=== PATIENT | male | born 1940 | race Caucasian/White ===

== ENCOUNTER 2018-12-15 06:15 | Observation (INO) | payer MEDICARE, OTHER ==
[2018-12-14 12:34] LABS: BASOPHILS # (AUTO) 0.1 (0.0-0.1); BASOPHILS % 1.2 % (0.0-1.0); EOSINOPHILS # (AUTO) 0.6 (0.0-0.4); HEMATOCRIT 39.8 % (38.2-49.6); HEMOGLOBIN 12.8 g/dL (14.0-18.0); LYMPHOCYTES # (AUTO) 2.8 (1.0-3.2); LYMPHOCYTES % 31.3 % (18.0-39.1); MEAN CORPUSCULAR HEMOGLOBIN 27.9 pg (28-32); MEAN CORPUSCULAR HGB CONC 32.2 g/dL (31-35); MEAN CORPUSCULAR VOLUME 86.9 fL (81-99); MONOCYTES # (AUTO) 0.9 (0.2-0.8); MONOCYTES % 10.4 % (4.4-11.3); NEUTROPHILS # (AUTO) 4.5 (2.1-6.9); NEUTROPHILS % 49.9 % (38.7-80.0); PLATELET COUNT 230 x10e3/uL (140-360); RED BLOOD COUNT 4.58 x10e6/uL (4.3-5.7); RED CELL DISTRIBUTION WIDTH 13.7 % (11.7-14.4)
[2018-12-14 12:53] LABS: INR 0.99
[2018-12-14 12:55] LABS: ANION GAP 14.5 mmol/L (8-16); CALCIUM 9.1 mg/dL (8.4-10.2); CREATININE, SERUM 2.02 mg/dL (0.72-1.25); POTASSIUM 4.5 mmol/L (3.5-5.1)
[~2018-12-15] VITALS: Ht 162.6 cm; Wt 134.3 kg
[2018-12-15] VITALS (20 sets, daily range): BP systolic 117–191; BP diastolic 58–177
[~2018-12-15 06:15] MED LIST: ADVAIR 500/501 EA INH; ASPIRIN81 MG PO; BAYER ASPIRIN PO; CATAPRES0.1 MG PO; CRESTOR10 MG PO; FENOFIBRATE145 MG PO; FENOFIBRATE54 MG PO; FUROSEMIDE40 MG PO; GLIPIZIDE10 MG PO; HYDRALAZINE HCL50 MG PO; HYDROCHLOROTHIA25 MG PO; HYDROCODON-ACE1 EA12 PO; LANTUS100 UNITS/ SQ; LASIX40 MG PO; LEVAQUIN500 MG PO; LOSARTAN POTASS25 MG PO; LOVASTATIN40 MG PO; MEN'S MULTI-VI1 EACH PO; MEVACOR40 MG PO; NORVASC10 MG PO; NOVOLOG MI100 UNIT/1 SC; OMEPRAZOLE20 M1 PO; PROAIR HFA INH8.5 GM INH; SPIRONOLACTONE25 MG PO; STOOL SOFTENER100 MG PO; TERAZOSIN HCL2 MG PO; TESSALON PERLE100 MG PO; ULTRAM 50MG50 MG PO; [UNRECOGNIZED DRUG - OTHER] PO
--- OUTSIDE RECORDS SUMMARY | 2018-12-15 06:17 | XMS REPORT ---
Author Author [facility] Address Unknown Phone Unavailable Care Team Providers Care Functional Analyst Name Role Phone ETHAN VANEGAS Unavailable Unavailable Problems This patient has no known problems. Allergies, Adverse Reactions, Alerts This patient has no known allergies or adverse reactions. Medications This patient has no known medications. Results Test Description Test Time Test Comments Text Results Atomic Results Result Comments CT CHEST WO [place] [address] Patient Name: ETHAN MADRIGAL MR #: [id number] : 1940 Age/Sex: 76/M Req #: [id number] [facility] Physician: ETHAN VANEGAS MD Ordered by: ETHAN VANEGAS MD Report #: [id number] Location: [facility] Room/Bed: [place] [address] Procedure: [id number] CT/CT CHEST WO Exam Date: 09/19/17 Exam Time: 1138 REPORT STATUS: Signed EXAM: CT Chest WITHOUT contrast INDICATION: COMPARISON: Chest radiograph 09/18/2017 TECHNIQUE: Chest was scanned utilizing a multidetector helical scanner from the lung apex through the level of the adrenal glands without administration of IV contrast. Absence of intravenous contrast decreases sensitivity for detection of lymphadenopathy and vascular pathology. Coronal and sagittal reformations were obtained. Routine protocol was performed. IV CONTRAST: None COMPLICATIONS: None RADIATION DOSE: Total DLP: 619.2 mGy*cm Estimated effective dose: (DLP x 0.014 x size factor) mSv CTDIvol has been reviewed. It is below the limits set by the Radiation Protocol Committee (RPC). FINDINGS: LINES/ TUBES: None. LUNGS AND AIRWAYS: No focal consolidations. Right middle lobe 0.6 m subpleural nodule (series 3 image 33). Right lower lobe 0.4 cm nodule along the major fissure (series 3 image 30), likely intrafissural node. PLEURA: The pleural spaces are clear. HEART AND MEDIASTINUM: The thyroid gland is normal. Scattered nonspecific subcentimeter mediastinal lymph nodes. The heart is normal in size.. There is no pericardial effusion. Aortic annular, aortic valvular, and coronary artery calcifications. UPPER ABDOMEN: Unremarkable. BONES: Thin diffuse calcification along the anterior longitudinal ligament which can be seen with ankylosing spondylitis. Hemangioma in the left aspect of the T11 vertebral body. Partially visualized anterior lower cervical fusion hardware. SOFT TISSUES: Unremarkable. IMPRESSION: No acute thoracic abnormalities. Right middle lobe 0.6 cm pulmonary nodule. Recommend follow-up chest CT without contrast in 6-12 months per Fleischner Society 2017 guide lines. Signed by: DR. Tom Koroma MD on 09/19/2017 12:14 PM Dictated By: TOM KOROMA MD 1214 Transcribed By: CASSIDY on 09/19/17 1214 COPY TO: ETHAN VANEGAS MD VQ LUNG SCAN VENT PERFUSION [place] [address] Patient Name: ETHAN MADRIGAL MR #: [id number] : 1940 Age/Sex: 76/M Req #: [id number] Adm Physician: ETHAN VANEGAS MD Ordered by: MARIAM JAUREGUI MD Report #: [id number] Location: [facility] Room/Bed: [place] [address] Procedure: [id number] NM/VQ LUNG SCAN VENT PERFUSION Exam Date: Exam Time: REPORT STATUS: Signed EXAM: VENTILATION PERFUSION LUNG SCAN INDICATION: 76 M with acute onset SOB; COPD exacerbation COMPARISON: CT chest without contrast 09/19/2017 DISCUSSION: Xenon-133 gas 25 mCi was administered via inhalation. Dynamic images of the lungs in the posterior projection were obtained through single breath and washout phases. Distribution of tracer activity is irregular throughout the lungs. Washout is diffusely delayed with severe air trapping in the bilateral lung bases. Perfusion images of the lungs in multiple projections were obtained following intravenous administration of 6 mCi of Tc-99m MAA. Distribution of tracer is mildly irregular throughout the lungs. There are no segmental perfusion defects of any size. The contours of the lungs are well demarcated. The cardiac silho uette is unremarkable. IMPRESSION: 1. Scan findings represent a VERY LOW probability for acute pulmonary embolic disease based on the PIOPED II criteria. 2. Scan findings are compatible with diffuse obstructive lung disease, most marked in the lung bases. Signed by: Dr. Radha Snider M.D. on 09/19/2017 4:14 PM Dictated By: RADHA SNIDER MD 13 Transcribed By: CASSIDY on 09/19/171613 COPY TO: MARIAM JAUREGUI MD CHEST 2 VIEWS [place] [address] Patient Name: ETHAN MADRIGAL MR #: [id number] : 1940 Age/Sex: 76/M Req #: [id number] Adm Physician: Ordered by: EMILY CLEMENT MD Report #: [id number] Location: ER Room/Bed: Procedure: [id number] DX/CHEST 2 VIEWS Exam Date: Exam Time: REPORT STATUS: Signed PROCEDURE: Frontal and lateral views of the chest. COMPARISON: 08/29/14 INDICATIONS: PNEUMONIA, SEPTIC FINDINGS: Limited by body habitus. Lines/tubes: None. Lungs: The lungs are well inflated and clear. Pleura: There is no pleural effusion or pneumothorax. Heart and mediastinum: Borderline enlarged cardiac silhouette on this AP view. Bones: No acute bony abnormality. IMPRESSION: 1. No acute cardiopulmonary disease. Dictated by: Dick Mcneil M.D. on 09/18/2017 at 15:12 Electronically approved by: Dick Mcneil M.D. on 09/18/2017 at 15:12 Dictated By: DICK MCNEIL MD 151 Transcribed By: SANDOR on 09/18/17 151 COPY TO: EMILY CLEMENT MD
--- OUTSIDE RECORDS SUMMARY | 2018-12-15 06:17 | XMS REPORT | Clinical Summary ---
Author Author [facility] Address Unknown Phone Unavailable Care Team Providers Care Print Decorator Name Role Phone Gonzalo Cueva MD PCP Allergies Comments Active Allergy Reactions Severity Noted Date Iodine 08/14/2017 Medications End Date Status Medication Sig Dispensed Refills Start Date Active terazosin (HYTRIN) 5 MG 0 capsule 7 Active losartan (COZAAR) 25 MG TK 1 T PO 1 tablet ONCE D 7 Active glipiZIDE (GLUCOTROL) 10 TK 1 T PO TID 0 MG tablet 7 Active omeprazole (PriLOSEC) 20 TK 1 C PO QAM 0 MG capsule 7 Active hydrALAZINE (APRESOLINE) TK 1 T PO TID 1 100 MG tablet 7 Active LANTUS SOLOSTAR 100 ADM 50 UNITS 0 unit/mL injection (pen) SC BID 7 Active furosemide (LASIX) 40 mg Take 40 mg by 0 tablet mouth 2 (two) times a day. Active fenofibrate (LOFIBRA) 54 Take 54 mg by 0 MG tablet mouth daily. Active aspirin (ECOTRIN) 81 MG Take 81 mg by 0 enteric coated tablet mouth daily. Active Problems Not on file Social History Date Tobacco Use Types Packs/Day Years Used Former Smoker Comments: quit 6 years ago Alcohol Use Drinks/Week oz/Week Comments Yes Sex Assigned at Date Recorded Not on file Industry Job Start Date Occupation Not on file Not on file Not on file Travel End Travel History Travel Start No recent travel history available. Last Filed Vital Signs Not on file Plan of Treatment Health Maintenance Due Date Last Done Comments SHINGLES VACCINES (1 of 1992 2) PNEUMOCOCCAL 2007 POLYSACCHARIDE VACCINE AGE 65 AND OVER PNEUMOCOCCAL-13 2007 INFLUENZA VACCINE 06/30/2018 Results Not on fileafter 12/14/2017 Insurance Payer Benefit Subscriber ID Type Phone Address Plan / Group [employer] TEX[employer]US xxxxxxxxx O [facility] Advance Directives Patient has advance care planning documents on file. For more information, gina e contact: Scott Kendall [address] [place] [address]
[2018-12-15] MEDS ORDERED: FENTANYL CITRATE/PF 100MCG/2 ML INJ ONE (06:53)
[2018-12-15] MEDS ORDERED: MIDAZOLAM HCL 2 MG/2 ML VIAL ONE ×2 (06:53→07:58)
[2018-12-15] MEDS ORDERED: BACITRACIN 50,000 UNIT VIAL ONE (06:53)
[2018-12-15] MEDS ORDERED: LIDOCAINE HCL 2% LOCAL 20 ML VIAL ONE (06:54)
[2018-12-15] MEDS ORDERED: SODIUM CHLORIDE 0.9% 500ML 500 ML ONE (06:54)
[2018-12-15] MEDS ORDERED: SODIUM CHLORIDE 0.9% 1000ML 2,000 ML ONE (06:55)
[2018-12-15] MEDS ORDERED: VANCOMYCIN 1GM/NS 250 ML 250 ML ONE (07:12)
[2018-12-15] MEDS ORDERED: LEVEMIR100 UNIT/1 SQ (07:23)
--- NOTE | 2018-12-15 10:00 | NUR ---
1000A Received pt report Stephen Sifuentes ,Identifierx2. Dual Pacer implanted [employer](DDDR-60) for SSS/Bradycardia,per Dr Hair.75 Fentanyl-25 ,4 Versed ,1gm Vancomycin. Lt shoulder sling in place.Pulse left Radial pulse adequate with finger tips blanching well . Iv to hand w/o s/s infiltration at KVO 850cc NS No dye due to Iodine allergies. CXR completed. Diet raty ordered . Family at bedside and discussed POC. and potential DC time 230pm after pacer integration at 12n. Abdomen soft and non tender denies necessity to defecate or urinate. at bedside Bilateral femoral pulses present 1+ pedal edema bilateral. Denies co CP or SOB or dizziness.
--- NOTE | 2018-12-15 10:21 | Diagnostic Imaging Report ---
EXAMINATION: CHEST SINGLE (PORTABLE) INDICATION: Chest pain. Pacemaker placement. COMPARISON: None FINDINGS: TUBES and LINES: Left chest dual-lead cardiac device is seen. LUNGS: Lungs are well inflated. Lungs are clear. There is no evidence of pneumonia or pulmonary edema. PLEURA: No pleural effusion or pneumothorax. HEART AND MEDIASTINUM: The cardiomediastinal silhouette is unremarkable. BONES AND SOFT TISSUES: No acute osseous lesion. Soft tissues are unremarkable. UPPER ABDOMEN: No free air under the diaphragm. IMPRESSION: No acute thoracic abnormality. Left chest dual-lead cardiac device is seen. Signed by: Dr. Zach Youngblood M.D. on 12/15/2018 10:18 AM
--- NOTE | 2018-12-15 11:15 | NUR ---
Medicated narco 5 for co pain 03/09. HOB elevated feed finger foods by ordered tel obsv bed by teletracker No CO Cp Or SOB
[2018-12-15] MEDS ORDERED: HYDROCODONE/APAP 5MG-325MG TAB ONE (12:11)
[2018-12-15] MEDS ORDERED: HYDROCODONE/APAP 5MG-325MG TAB PO ONE (12:15)
--- NOTE | 2018-12-15 12:31 | NUR ---
1231 awaiting be disposition. Tele observation. Pt appears more comfortable after po Narco and eating finger foods with assistance No bleeding at site awaiting pace maker interrogation team
--- NOTE | 2018-12-15 13:29 | NUR ---
1330 [place] supv Tia RN,called back obtaining tele obsv bed em[place]. Notification x2.
--- NOTE | 2018-12-15 13:30 | Operative Report ---
DATE OF PROCEDURE: December 15, 2018 PREPROCEDURE DIAGNOSIS: Sick sinus syndrome, tachybrady syndrome with symptomatic bradycardia, nonreversible causes. POSTPROCEDURE DIAGNOSIS: Sick sinus syndrome, tachybrady syndrome with symptomatic bradycardia, nonreversible causes. ESTIMATED BLOOD LOSS: 5 mL. COMPLICATIONS: None. PROCEDURES PERFORMED 1. Dual-chamber pacemaker placement. 2. Moderate sedation. ANESTHESIA: Moderate conscious sedation was provided under my direct supervision by a sedation-trained nurse. Sedation approximate time 30 minutes with Versed and fentanyl. There were no complications. See sedation form for details. DESCRIPTION OF PROCEDURE: After informed consent was obtained, the patient was brought to the electrophysiology laboratory in a fasting, nonsedated state. The area over his chest was prepped and draped in the usual sterile fashion. Moderate sedation and prophylactic antibiotic were given. One percent lidocaine was used as a local anesthetic. A 3-cm skin incision was made in the left subclavicular area. Electrocautery and sharp and blunt dissection were used to reach the muscular fascia, and a pocket was created for eventual implantation of the device. Vascular access was obtained x2 in the left axillary vein using the modified Seldinger technique under fluoroscopic guidance. Two 6-Malagasy sheaths were placed. The ventricular lead was advanced to the RV apex. R-wave 16, pacing 0.5 at 0.5, impedance 800. Atrial lead to the right atrial appendage. P-wave 4, pacing 0.7 at 0.5, impedance 600. The sheaths were removed from the body. The leads were secured to the fascia using Ethibond. The pocket was irrigated with antibiotic solution using the pulse final installer inspector. Hemostasis was meticulous. Leads were connected to the device. The entire pacemaker system was placed in the pocket. The incision was closed using Vicryl and Dermabond. The patient tolerated the procedure well. The procedure was deemed complete. SUMMARY OF HARDWARE IMPLANTED 1. The new pacemaker is [employer] model number L311, [id number]. 2. The atrial lead is [employer] 7740, [id number]. 3. The ventricular lead is [employer] 7731, [id number]. IMPRESSION: Successful dual-chamber pacemaker placement via left axillary vein. PLAN 1. Routine postop monitoring on telemetry bed. 2. Chest x-ray. 3. Follow up in 2 weeks. Job#: [id number] MH
--- OUTSIDE RECORDS SUMMARY | 2018-12-15 13:51 | XMS REPORT | Clinical Summary ---
Author Author [facility] Address Unknown Phone Unavailable Care Team Providers Care Family Support Specialist Name Role Phone Gonzalo Cueva MD PCP [...] Plan / Group TEX[employer] TEX[employer]PL[employer] xxxxxxxxx O [facility] Advance Directives Patient has advance care planning documents on file. For more information, gina e contact: Scott Kendall [address] [place] [address]
--- NOTE | 2018-12-15 14:15 | NUR ---
RECEIVED PATIENT FROM FARM MANAGER. LEFT CHEST WALL DRESSING INTACT. VITAL SIGNS ARE STABLE. POC DISCUSSED WITH PATIENT AND SPOUSE. BOTH VERBALIZED UNDERSTANDING. TELE VERIFIED WITH SR VICE PRESIDENT BED IN LOWEST POSITION, LOCKED AND CALL SHAIKH WITHIN REACH.
--- NOTE | 2018-12-15 14:15 | NUR ---
Transfer to floor care RM 177 tele obsv Report face to face. s/p new Pacemaker insert DR Daniel Let sc dressing dry and intact. Paced rhythm. Plan to dc in am. DC plan discussed with with teaching aids and home script given to family. Transported via stretcher on tel box. escorted by COMMUNICATIONS COORDINATOR and RN and in attendance. SIMON Kyle RN nurse received report and check site. Pt received [place] x1 with adequate relief. Still needs pacer evaluation but CXR done. Left pt with side rails up and call light at bedside.
--- NOTE | 2018-12-15 15:19 | NUR ---
Dr. Daniel paged to clarify if home medications can be restarted.
[2018-12-15] MEDS ORDERED: NON-FORMULARY MEDICATION (Insuln Asp Prt/Insulin Aspart (Novolog Mix 70-30 Flexpen Syrn) 1 SC SCH (16:30)
[2018-12-15] MEDS ORDERED: ALBUTEROL SULFATE HFA 8GM INHALATION AEROSOL INH PRN (16:30)
[2018-12-15] MEDS ORDERED: HYDRALAZINE HCL 100 MG PO SCH (17:00)
[2018-12-15] MEDS ORDERED: INSULIN DETEMIR 100 UNIT/ML PEN SQ SCH (17:00)
[2018-12-15] MEDS ORDERED: NON-FORMULARY MEDICATION (Insulin Detemir (Levemir) 50 UNITS) SQ SCH (17:00)
[2018-12-15] MEDS ORDERED: NON-FORMULARY MEDICATION (Glipizide 10 MG) PO SCH (17:00)
[2018-12-15] MEDS: INSULIN ASPART 70/30 100 UNITS/ML VIAL SC SCH (17:09)
[2018-12-15] MEDS: GLIPIZIDE 5 MG TAB PO SCH (17:09)
[2018-12-15] MEDS: HYDRALAZINE HCL 100 MG TABLET PO SCH (17:09)
[2018-12-15] MEDS: FUROSEMIDE 40 MG TAB PO SCH (17:09)
--- NOTE | 2018-12-15 18:05 | NUR ---
Patient assisted up to the bathroom and back to bed. Call [place] within reach.
--- NOTE | 2018-12-15 19:15 | NUR ---
Report given to oncoming shift.
[2018-12-15] MEDS ORDERED: MORPHINE SULFATE 2 MG/ML SYR 1ML IV PRN (20:30)
[2018-12-15] MEDS: INSULIN DETEMIR 100 UNIT/ML PEN SQ SCH (21:00)
[2018-12-15] MEDS: MORPHINE SULFATE INJ 4 MG/ML INJ 1ML IV PRN (21:00)
[2018-12-15] MEDS: TERAZOSIN HCL 5 MG CAP PO SCH (21:00)
[2018-12-15] MEDS: SIMVASTATIN 40 MG TAB PO SCH (21:00)
[2018-12-15] MEDS ORDERED: TERAZOSIN HCL 5 MG PO SCH (21:00)
[2018-12-15] MEDS ORDERED: SIMVASTATIN 20 MG TAB PO SCH (21:00)
[2018-12-16] VITALS (8 sets, daily range): BP systolic 127–184; BP diastolic 58–80
--- NOTE | 2018-12-16 01:40 | NUR ---
0140-pt c/o chest pain in sternal area. intermittant pain. 04/08. manual bp done. 184/76, hr 72. will give morphine and order stat ecg 0155--morphive iv given. pain 04/08. 0158--stat ecg done. 0204--call placed to dr rojo. pt states pain now 01/09. no other symptoms. bp 178/74. will await call back.
[2018-12-16] MEDS: MORPHINE SULFATE INJ 4 MG/ML INJ 1ML IV PRN (01:55)
--- NOTE | 2018-12-16 02:04 | NUR ---
call placed to dr rojo answering service. spoke to ellis. will await call back.
--- NOTE | 2018-12-16 02:50 | NUR ---
spoke with dr rojo. informed him of ecg results, bp 184/76, then 178/74 after morphine was given informed him that pain went from 5/10 to 2/10. also informed him that pt was having chills earlier in shift that was resolved with blankets. also informed him that pt's pain was in near strenal bone area. no other symptoms. received orders for hydralizine x1 dose and to give a prn norco tablet now.
[2018-12-16] MEDS ORDERED: HYDRALAZINE HCL 20 MG/ML VIAL IV STA (02:53)
[2018-12-16] MEDS: HYDROCODONE/APAP 5MG-325MG TAB PO PRN ×4 (03:03→21:14)
--- NOTE | 2018-12-16 04:00 | NUR ---
vitals improved. pt denies any chest pain. no distres.s
--- NOTE | 2018-12-16 07:00 | NUR ---
Walking rounds done and report received. Device specialist at bedside interrogating pacemaker. POC discussed. at the bedside. Both instructed to call for assistance as needed and verbalized understanding. Call [place] within reach. Tele verified with telephone coin box collector.
[2018-12-16] MEDS: INSULIN ASPART 70/30 100 UNITS/ML VIAL SC SCH ×3 (07:30→16:30)
[2018-12-16] MEDS: FUROSEMIDE 40 MG TAB PO SCH ×2 (08:27→17:00)
[2018-12-16] MEDS: HYDROCHLOROTHIAZIDE 25 MG TAB PO SCH (08:28)
[2018-12-16] MEDS: GLIPIZIDE 5 MG TAB PO SCH ×2 (08:30→17:11)
[2018-12-16] MEDS: PANTOPRAZOLE SOD 40 MG TABEC PO SCH (08:30)
[2018-12-16] MEDS: LOSARTAN POTASSIUM 25 MG TAB PO SCH (08:50)
[2018-12-16] MEDS: ASPIRIN 81 MG CHEW TAB PO SCH (08:50)
[2018-12-16] MEDS: DOCUSATE SODIUM 100 MG CAP PO SCH (08:50)
[2018-12-16] MEDS: FOLIC ACID/CYANOCOB/PYRIDOXINE TAB PO SCH (08:51)
[2018-12-16] MEDS: HYDRALAZINE HCL 100 MG TABLET PO SCH ×2 (08:51→17:11)
[2018-12-16] MEDS: AMLODIPINE BESYLATE 10 MG TAB PO SCH (08:51)
[2018-12-16] MEDS: FENOFIBRATE 145 MG TAB PO SCH (08:51)
[2018-12-16] MEDS ORDERED: [UNRECOGNIZED DRUG - OTHER] PO SCH (09:00)
[2018-12-16] MEDS: INSULIN DETEMIR 100 UNIT/ML PEN SQ SCH ×2 (09:11→21:00)
--- NOTE | 2018-12-16 09:52 | NUR ---
at the bedside making rounds. Per MD patient will need to stay one more night. Patient and spouse verbalized understanding.
[2018-12-16] MEDS ORDERED: COLCHICINE 0.6 MG TAB PO STA (09:53)
--- NOTE | 2018-12-16 10:33 | NUR ---
SOCIAL WORK INITIAL ASSESSMENT Acute Specialist to bedside to discuss plan of care with patient/family. CM/SW role and care transitions discussed. Anticipated discharge plan discussed along with duration of care. CM/SW discussed patients right to make decisions in care. CM/SW work hours given. Patient lives: IN OWN HOUSE WITH FAMILY Admit/Transfer: VIA ED FROM HOME POA/Emergency contact: PORFIRIO [phone] Current/Previous Home Health: NONE PCP/Follow-up Care: LÁZARO Current/Previous DME: NONE Other Services: NONE Employment Status: DISABLED Areas of Concerns: BLIND Referral Needs: NONE Education Needs: NONE IMM/ELKINS given and signed (if applicable): ELKINS Goal for discharge: RETURN HOME INDEPENDENTLY CM/SW left business card at the bedside with contact information. Name and number was also written on the patients whiteboard. Patient verbalized understanding of discussion. CM will follow-up with ongoing discharge and transition of care needs.
[2018-12-16] MEDS: COLCHICINE 0.6 MG TAB PO SCH ×2 (14:59→21:13)
--- NOTE | 2018-12-16 19:01 | NUR ---
Report given to oncoming shift.
--- NOTE | 2018-12-16 19:05 | NUR ---
REPORT RECEIVED FROM OFF GOING NURSE, PT AND IN RESTROOM, DENIES NEEDS, REFUSING ASSISTANCE, INSTRUCTED TO CALL FOR ASSISTANCE
[2018-12-16] MEDS: TERAZOSIN HCL 5 MG CAP PO SCH (21:00)
[2018-12-16] MEDS: SIMVASTATIN 40 MG TAB PO SCH (21:00)
[2018-12-17] VITALS: BP 135/59
[2018-12-17] MEDS: HYDROCODONE/APAP 5MG-325MG TAB PO PRN ×2 (03:23→08:55)
[2018-12-17 04:20] VITALS: BP 139/79
[2018-12-17] MEDS: COLCHICINE 0.6 MG TAB PO SCH ×2 (06:00→12:25)
--- NOTE | 2018-12-17 07:14 | NUR ---
pt resting in bed, no c/o pain or s/s distress. family at bedside.
[2018-12-17] MEDS: INSULIN ASPART 70/30 100 UNITS/ML VIAL SC SCH ×2 (07:30→11:30)
[2018-12-17 08:01] VITALS: BP 161/67
[2018-12-17] MEDS: GLIPIZIDE 5 MG TAB PO SCH (08:14)
[2018-12-17] MEDS: LOSARTAN POTASSIUM 25 MG TAB PO SCH (08:14)
[2018-12-17] MEDS: DOCUSATE SODIUM 100 MG CAP PO SCH (08:14)
[2018-12-17] MEDS: AMLODIPINE BESYLATE 10 MG TAB PO SCH (08:14)
[2018-12-17] MEDS: FENOFIBRATE 145 MG TAB PO SCH (08:14)
[2018-12-17] MEDS: ASPIRIN 81 MG CHEW TAB PO SCH (08:14)
[2018-12-17] MEDS: FOLIC ACID/CYANOCOB/PYRIDOXINE TAB PO SCH (08:14)
[2018-12-17] MEDS: HYDROCHLOROTHIAZIDE 25 MG TAB PO SCH (08:14)
[2018-12-17] MEDS: PANTOPRAZOLE SOD 40 MG TABEC PO SCH (08:14)
[2018-12-17] MEDS: HYDRALAZINE HCL 100 MG TABLET PO SCH (08:36)
[2018-12-17] MEDS: FUROSEMIDE 40 MG TAB PO SCH (08:36)
[2018-12-17] MEDS: INSULIN DETEMIR 100 UNIT/ML PEN SQ SCH (08:38)
--- NOTE | 2018-12-17 08:39 | NUR ---
pt states he doesnt want the 70/30 insulin orquidea due to current bs96. also refusing lasix and hcl, states he will resume when goes home.
[2018-12-17 09:52] VITALS: BP 161/67
--- NOTE | 2018-12-17 11:17 | NUR ---
pt wanting to dc, ed will call MD to check on dc order and rx for gout rx at pt request. spoke to md nurse, pending callback
[2018-12-17 12:03] VITALS: BP 162/62
--- NOTE | 2018-12-17 12:48 | NUR ---
reviewed dc instructions with pt and , verbalized understanding. early last dose of gout med per MD instructions prior to dc. aware of vs. pt stable. did not want insulin prior to dc.
== END 2018-12-17 12:40 | disposition home or self-care (01) ==
LOC: CATH LAB 06:15 → CATH LAB V 11:57 → IMCU 14:04
PROVIDERS: ADMIT Internal Medicine; ATTEND Internal Medicine
DX: I49.5 Sick sinus syndrome (principal); Z01.812 Encounter for preprocedural laboratory examination; I10 Essential (primary) hypertension; E11.9 Type 2 diabetes mellitus without complications; Z86.73 Personal history of transient ischemic attack (TIA), and cerebral infarction without residual deficits; I25.119 Atherosclerotic heart disease of native coronary artery with unspecified angina pectoris; Z79.84 Long term (current) use of oral hypoglycemic drugs; G47.33 Obstructive sleep apnea (adult) (pediatric); E66.01 Morbid (severe) obesity due to excess calories; Z68.43 Body mass index [BMI] 50.0-59.9, adult; I45.10 Unspecified right bundle-branch block; Z91.041 Radiographic dye allergy status; Z82.49 Family history of ischemic heart disease and other diseases of the circulatory system
CPT/HCPCS: 33208; 36415 ×4; 71045; 80048; 82948 ×3; 85025; 85610; 93005; C1785; C1898; G0378 ×3; J0360; J1815; J2001; J2250; J2270 ×2; J3370; J7030; J7040; S0164 ×2

== ENCOUNTER → 2020-08-16 | Outpatient (CLI) | payer MEDICARE ==
[~2020-08-16] MED LIST changes: +LEVEMIR100 UNIT/1 SQ
--- NOTE | 2020-08-16 16:03 | Diagnostic Imaging Report ---
EXAM: Renal Ultrasound INDICATION: ^CHRONIC KIDNEY DISEASE STAGE III COMPARISON: None TECHNIQUE: Transverse and longitudinal images of the kidneys and bladder were obtained. FINDINGS: Right Kidney: Length: 10.4 cm Appearance: Normal echogenicity. Collecting system: No hydronephrosis Stones: None Cyst/Mass: Mid pole anechoic simple cysts measure up to 2.1 cm. Left Kidney: Length: 12.2 cm Appearance: Normal echogenicity. Collecting system: No hydronephrosis Stones: None Cyst/Mass: None Bladder: No mass or calculi. Ureteral jets not visualized. Prevoid volume estimate of 83 cc. Postvoid images demonstrate complete emptying. The prostate measures 2.3 x 2.4 x 2.4 cm with normal volume estimate of 6.7 cc. IMPRESSION: No hydronephrosis or renal calculi. Simple right renal cysts. Pre and post void volume estimates as above with complete postvoid emptying. Signed by: Alfredo Santana MD on 08/16/2020 3:59 PM
== END ==
LOC: US 14:24
PROVIDERS: ATTEND Internal Medicine Nephrology
DX: N18.3 Chronic kidney disease, stage 3 (moderate) (principal)
CPT/HCPCS: 76770; 76857

== ENCOUNTER → 2020-11-13 | Day surgery (SDC) | payer MEDICARE ==
[2020-11-08 10:21] LABS: BASOPHILS # (AUTO) 0.1 (0.0-0.1); BASOPHILS % 1.6 % (0.0-1.0); EOSINOPHILS # (AUTO) 1.1 (0.0-0.4); EOSINOPHILS % 12.8 % (0.0-6.0); HEMATOCRIT 38.1 % (38.2-49.6); HEMOGLOBIN 12.3 g/dL (14.0-18.0); LYMPHOCYTES # (AUTO) 2.4 (1.0-3.2); LYMPHOCYTES % 26.7 % (18.0-39.1); MEAN CORPUSCULAR HGB CONC 32.3 g/dL (31-35); MEAN CORPUSCULAR VOLUME 86.8 fL (81-99); MONOCYTES # (AUTO) 0.8 (0.2-0.8); MONOCYTES % 8.8 % (4.4-11.3); NEUTROPHILS # (AUTO) 4.4 (2.1-6.9); NEUTROPHILS % 49.9 % (38.7-80.0); PLATELET COUNT 241 x10e3/uL (140-360); RED BLOOD COUNT 4.39 x10e6/uL (4.3-5.7)
[2020-11-08 10:57] LABS: ALBUMIN 3.5 g/dL (3.5-5.0); ALBUMIN/GLOBULIN RATIO 1.1 (0.8-2.0); ANION GAP 13.3 mmol/L (8-16); CREATININE, SERUM 1.81 mg/dL (0.72-1.25); POTASSIUM 4.3 mmol/L (3.5-5.1)
[2020-11-13] VITALS (11 sets, daily range): BP systolic 128–156; BP diastolic 60–92
[~2020-11-13] VITALS: Ht 165.1 cm; Wt 133.4 kg
[~2020-11-13] MED LIST changes: +ALPRAZOLAM 0.5 MG TAB ONE; +AMLODIPINE BESYL5 MG PO; +ATORVASTATIN CA20 MG PO; +DIPHENHYDRAMINE HCL 25 MG CAP ONE; +FAMOTIDINE 20 MG/2 ML VIAL IV ONE; +FENTANYL CITRATE/PF 100MCG/2 ML INJ ONE; +HEPARIN SOD/SOD CHLORIDE 2,000 ML ONE; +IOPAMIDOL 370 MG/ML 200 ML INFUS..BTL INJ ONE; +IRBESARTAN150 MG PO; +LIDOCAINE HCL 2% LOCAL 20 ML VIAL ONE; +METHYLPREDNISOLONE SOD SUCC 125 MG/2ML VIAL ONE; +METOPROLOL SUCC50 MG PO; +MIDAZOLAM HCL 2 MG/2 ML VIAL ONE; +NOVOLOG100 UNIT/1 SC; +RENA-VITE TABL0.8 MG PO; +SODIUM CHLORIDE 0.9% 1000ML 1,000 ML ONE; +TERAZOSIN HCL5 MG PO; +VERAPAMIL HCL 2.5 MG/ML 2 ML VIAL ONE
== END | disposition home or self-care (01) ==
LOC: CATH LAB 11:07
PROVIDERS: ATTEND Internal Medicine Interventional Cardiology
DX: I25.118 Atherosclerotic heart disease of native coronary artery with other forms of angina pectoris (principal); J44.9 Chronic obstructive pulmonary disease, unspecified; E11.9 Type 2 diabetes mellitus without complications; Z95.0 Presence of cardiac pacemaker; Z83.3 Family history of diabetes mellitus; Z82.49 Family history of ischemic heart disease and other diseases of the circulatory system; Z84.1 Family history of disorders of kidney and ureter; Z80.9 Family history of malignant neoplasm, unspecified; I10 Essential (primary) hypertension; I49.3 Ventricular premature depolarization; R53.81 Other malaise; Z20.828 Contact with and (suspected) exposure to other viral communicable diseases
CPT/HCPCS: 36415; 76937 ×2; 80053; 85025; 93454; C1769; C1887; J2001; J2250; J2930; J3010; J7030; Q9967; U0002; 99152

== ENCOUNTER → 2020-11-29 | Outpatient (CLI) | payer MEDICARE ==
[~2020-11-29] MED LIST changes: -ALPRAZOLAM 0.5 MG TAB ONE; -DIPHENHYDRAMINE HCL 25 MG CAP ONE; -FAMOTIDINE 20 MG/2 ML VIAL IV ONE; -FENTANYL CITRATE/PF 100MCG/2 ML INJ ONE; -HEPARIN SOD/SOD CHLORIDE 2,000 ML ONE; -IOPAMIDOL 370 MG/ML 200 ML INFUS..BTL INJ ONE; -LIDOCAINE HCL 2% LOCAL 20 ML VIAL ONE; -METHYLPREDNISOLONE SOD SUCC 125 MG/2ML VIAL ONE; -MIDAZOLAM HCL 2 MG/2 ML VIAL ONE; -SODIUM CHLORIDE 0.9% 1000ML 1,000 ML ONE; -VERAPAMIL HCL 2.5 MG/ML 2 ML VIAL ONE
== END ==
LOC: US 08:24
PROVIDERS: ATTEND Internal Medicine Nephrology
DX: N18.30 Chronic kidney disease, stage 3 unspecified (principal)
CPT/HCPCS: 76770; 76857

== ENCOUNTER → 2021-05-28 | Outpatient (CLI) | payer MEDICARE | LOC: CT 13:27 | PROVIDERS: ATTEND Internal Medicine Gastroenterology | DX: Z12.11 Encounter for screening for malignant neoplasm of colon (principal); K30 Functional dyspepsia; R14.0 Abdominal distension (gaseous); K46.9 Unspecified abdominal hernia without obstruction or gangrene; E11.9 Type 2 diabetes mellitus without complications; I10 Essential (primary) hypertension; Z71.3 Dietary counseling and surveillance; E66.01 Morbid (severe) obesity due to excess calories; Z87.891 Personal history of nicotine dependence | CPT/HCPCS: 74176 ==

== ENCOUNTER → 2021-07-23 | Day surgery (SDC) | payer MEDICARE ==
[2021-07-22 07:54] LABS: BASOPHILS # (AUTO) 0.2 (0.0-0.1); BASOPHILS % 1.8 % (0.0-1.0); EOSINOPHILS % 10.9 % (0.0-6.0); HEMATOCRIT 39.4 % (38.2-49.6); HEMOGLOBIN 12.2 g/dL (14.0-18.0); LYMPHOCYTES # (AUTO) 3.1 (1.0-3.2); LYMPHOCYTES % 32.6 % (18.0-39.1); MEAN CORPUSCULAR HEMOGLOBIN 27.8 pg (28-32); MEAN CORPUSCULAR VOLUME 89.7 fL (81-99); MONOCYTES # (AUTO) 0.8 (0.2-0.8); MONOCYTES % 8.1 % (4.4-11.3); NEUTROPHILS # (AUTO) 4.4 (2.1-6.9); NEUTROPHILS % 46.2 % (38.7-80.0); PLATELET COUNT 264 x10e3/uL (140-360); RED BLOOD COUNT 4.39 x10e6/uL (4.3-5.7); RED CELL DISTRIBUTION WIDTH 14.1 % (11.7-14.4)
[2021-07-22 08:35] LABS: INR 0.96; PARTIAL THROMBOPLASTIN TIME 33.9 seconds (23.8-35.5)
[2021-07-22 08:43] LABS: ANION GAP 15.5 mmol/L (8-16); CALCIUM 9.5 mg/dL (8.4-10.2); CREATININE, SERUM 1.81 mg/dL (0.72-1.25); POTASSIUM 4.5 mmol/L (3.5-5.1)
[~2021-07-23] MED LIST changes: +STOOL SOFTENER1 EAC2 PEG; +ULTRAM50 MG PO
[2021-07-23 08:05] VITALS: BP 145/61
== END | disposition home or self-care (01) ==
LOC: OR 05:34
PROVIDERS: ATTEND Internal Medicine Gastroenterology
DX: Z12.11 Encounter for screening for malignant neoplasm of colon (principal); D12.0 Benign neoplasm of cecum; K31.7 Polyp of stomach and duodenum; K29.70 Gastritis, unspecified, without bleeding; K44.9 Diaphragmatic hernia without obstruction or gangrene; K21.9 Gastro-esophageal reflux disease without esophagitis; Z71.3 Dietary counseling and surveillance; K46.9 Unspecified abdominal hernia without obstruction or gangrene; E11.22 Type 2 diabetes mellitus with diabetic chronic kidney disease; I12.9 Hypertensive chronic kidney disease with stage 1 through stage 4 chronic kidney disease, or unspecified chronic kidney disease; N18.9 Chronic kidney disease, unspecified; I25.10 Atherosclerotic heart disease of native coronary artery without angina pectoris; J45.909 Unspecified asthma, uncomplicated; E66.01 Morbid (severe) obesity due to excess calories; Z91.041 Radiographic dye allergy status; Z01.810 Encounter for preprocedural cardiovascular examination; Z01.812 Encounter for preprocedural laboratory examination; Z20.822 Contact with and (suspected) exposure to COVID-19; Z79.82 Long term (current) use of aspirin; Z79.4 Long term (current) use of insulin; Z68.42 Body mass index [BMI] 45.0-49.9, adult; Z87.891 Personal history of nicotine dependence; Z86.73 Personal history of transient ischemic attack (TIA), and cerebral infarction without residual deficits; Z95.0 Presence of cardiac pacemaker
CPT/HCPCS: 36415 ×2; 43239; 45380; 80048; 82948; 85025; 85610; 85730; 88305; 88312; 93005; U0002; 45378

== ENCOUNTER 2021-11-05 23:03 | Inpatient (IN) | payer MEDICARE ==
[~2021-11-05] VITALS: Ht 165.1 cm; Wt 133.4 kg
[2021-11-05 23:34] LABS: BASOPHILS # (AUTO) 0.2 (0.0-0.1); BASOPHILS % 1.5 % (0.0-1.0); EOSINOPHILS # (AUTO) 0.7 (0.0-0.4); EOSINOPHILS % 7.4 % (0.0-6.0); HEMATOCRIT 39.3 % (38.2-49.6); HEMOGLOBIN 12.5 g/dL (14.0-18.0); LYMPHOCYTES # (AUTO) 2.5 (1.0-3.2); LYMPHOCYTES % 25.2 % (18.0-39.1); MEAN CORPUSCULAR HEMOGLOBIN 28.2 pg (28-32); MEAN CORPUSCULAR HGB CONC 31.8 g/dL (31-35); MEAN CORPUSCULAR VOLUME 88.5 fL (81-99); MONOCYTES # (AUTO) 0.9 (0.2-0.8); NEUTROPHILS # (AUTO) 5.5 (2.1-6.9); NEUTROPHILS % 56.7 % (38.7-80.0); PLATELET COUNT 289 x10e3/uL (140-360); RED BLOOD COUNT 4.44 x10e6/uL (4.3-5.7); RED CELL DISTRIBUTION WIDTH 14.3 % (11.7-14.4)
[2021-11-05 23:54] LABS: ALBUMIN 3.4 g/dL (3.5-5.0); ALBUMIN/GLOBULIN RATIO 1.1 (0.8-2.0); ANION GAP 16.3 mmol/L (8-16); CALCIUM 8.8 mg/dL (8.4-10.2); CREATININE, SERUM 2.61 mg/dL (0.72-1.25); POTASSIUM 4.3 mmol/L (3.5-5.1)
[2021-11-06] VITALS (18 sets, daily range): BP systolic 100–143; BP diastolic 50–105
[2021-11-06] MEDS ORDERED: METOPROLOL TARTRATE INJ 1 MG/ML VIAL IV ONE ×3 (00:15→01:15)
[2021-11-06] MEDS ORDERED: ESMOLOL HCL 2500MG/250 ML 250 ML IV SCH (01:45)
[2021-11-06] MEDS ORDERED: AMIODARONE 900MG 500 ML IV STA (02:08)
[2021-11-06] MEDS ORDERED: Vancomycin IV 1.25 GM in SODIUM CHLORIDE 0.9% 250ML 250 ML IV ONE (04:15)
[2021-11-06] MEDS ORDERED: ONDANSETRON HCL INJ 2MG/ML 2ML 2 MG/ML VIAL IV PRN (04:15)
[2021-11-06] MEDS: CEFTRIAXONE 1 GM in SODIUM CHLORIDE 0.9% 50ML 50 ML IV SCH (04:15)
[2021-11-06] MEDS ORDERED: MAGNESIUM/ALUMINUM/SIMETHICONE 30 ML UDC PO PRN (04:15)
[2021-11-06] MEDS ORDERED: ALBUTEROL SULF 0.083% NEB SOLN 3 ML NEB NEB PRN (04:15)
[2021-11-06] MEDS ORDERED: Doxycycline IV 100 MG in SODIUM CHLORIDE 0.9% 100 ML IV SCH (04:15)
[2021-11-06] MEDS ORDERED: AMIODARONE 900MG 500 ML IV ONE (04:15)
[2021-11-06] MEDS ORDERED: ACETAMINOPHEN 325 MG TAB PO PRN (04:15)
[2021-11-06] MEDS ORDERED: DOCUSATE SODIUM 100 MG CAP PO PRN (04:15)
[2021-11-06] MEDS ORDERED: DEXTROSE 50% SYRINGE 50 ML IV PRN (04:30)
[2021-11-06] MEDS ORDERED: SENNA-S TABLET PEG PRN (04:30)
[2021-11-06] MEDS ORDERED: METOPROLOL TARTRATE INJ 1 MG/ML VIAL IV PRN (04:30)
[2021-11-06] MEDS ORDERED: TRAMADOL HCL 50 MG TAB PO PRN (04:30)
[2021-11-06] MEDS: METOPROLOL TARTRATE 25 MG TAB PO SCH ×3 (06:00→23:22)
[2021-11-06] MEDS: DOXYCYCLINE HYCLATE 100 MG in SODIUM CHLORIDE 0.9% 100 ML IV SCH ×3 (06:38→21:30)
[2021-11-06 07:11] LABS: CHOL/HDL RATIO 3.9 (3.9-4.7)
[2021-11-06 07:21] LABS: CREATINE KINASE MB 1.7 ng/mL (0-5.0)
[2021-11-06] MEDS: INSULIN REGULAR, HUMAN 100 UNIT/1 ML SQ SCH ×4 (07:30→21:27)
[2021-11-06 07:33] LABS: FREE THYROXINE INDEX 2.2838 (1.4-3.8); THYROID STIMULATING HORMONE 2.619 uIU/mL (0.350-4.940)
[2021-11-06] MEDS: PANTOPRAZOLE SOD 40 MG TABEC PO SCH (09:43)
[2021-11-06] MEDS: MULTIVITAMINS/MINERALS TAB PO SCH (09:44)
[2021-11-06] MEDS: ATORVASTATIN 20 MG TAB PO SCH (09:44)
[2021-11-06] MEDS: FENOFIBRATE 145 MG TAB PO SCH (09:44)
[2021-11-06] MEDS: ASPIRIN 81 MG CHEW TAB PO SCH (09:44)
[2021-11-06] MEDS: ENOXAPARIN SODIUM INJ 100 MG/ML SYR SC SCH (09:45)
[2021-11-06 14:31] LABS: CREATINE KINASE MB 2.1 ng/mL (0-5.0)
[2021-11-06 14:59] LABS: CLARITY,URINE CLEAR (CLEAR); COLOR,URINE YELLOW (YELLOW)
[2021-11-06 15:00] LABS: BACTERIA,URINE FEW /HPF; EPITHELIAL CELLS,URINE FEW /LPF; KETONES,URINE NEGATIVE (NEGATIVE); LEUKOCYTE ESTERASE ,URINE NEGATIVE (NEGATIVE); NITRITE,URINE NEGATIVE (NEGATIVE); PROTEIN,URINE DIPSTICK NEGATIVE (NEGATIVE); RBC,URINE 0-5 /HPF (0-5); URINE UROBILINOGEN 0.2 mg/dL (0.2 - 1); WBC,URINE (MAN) 0-5 /HPF (0-5)
[2021-11-06] MEDS ORDERED: DIGOXIN INJ 0.25 MG/ML 2 ML AMP IV ONE (18:35)
[2021-11-06] MEDS ORDERED: DOXYCYCLINE HYCLATE 100 MG VIAL IV ONE (21:44)
[2021-11-06] MEDS ORDERED: SODIUM CHLORIDE 0.9% 100 ML ONE (21:45)
[2021-11-07] VITALS (28 sets, daily range): BP systolic 84–163; BP diastolic 41–124
[2021-11-07] MEDS ORDERED: AMIODARONE 900MG 500 ML IV ONE (03:28)
[2021-11-07 05:00] LABS: BASOPHILS # (AUTO) 0.1 (0.0-0.1); BASOPHILS % 1.7 % (0.0-1.0); EOSINOPHILS # (AUTO) 0.8 (0.0-0.4); EOSINOPHILS % 10.9 % (0.0-6.0); HEMATOCRIT 39.3 % (38.2-49.6); HEMOGLOBIN 12.4 g/dL (14.0-18.0); LYMPHOCYTES % 26.6 % (18.0-39.1); MEAN CORPUSCULAR HEMOGLOBIN 28.1 pg (28-32); MEAN CORPUSCULAR HGB CONC 31.6 g/dL (31-35); MEAN CORPUSCULAR VOLUME 88.9 fL (81-99); MONOCYTES # (AUTO) 0.7 (0.2-0.8); MONOCYTES % 8.7 % (4.4-11.3); NEUTROPHILS # (AUTO) 3.9 (2.1-6.9); NEUTROPHILS % 51.8 % (38.7-80.0); PLATELET COUNT 253 x10e3/uL (140-360); RED BLOOD COUNT 4.42 x10e6/uL (4.3-5.7)
[2021-11-07 05:17] LABS: ALBUMIN 3.2 g/dL (3.5-5.0); ANION GAP 15.8 mmol/L (8-16); CALCIUM 9.2 mg/dL (8.4-10.2); CREATININE, SERUM 1.93 mg/dL (0.72-1.25); POTASSIUM 4.8 mmol/L (3.5-5.1)
[2021-11-07] MEDS: METOPROLOL TARTRATE 25 MG TAB PO SCH ×3 (06:39→20:01)
[2021-11-07] MEDS: PANTOPRAZOLE SOD 40 MG TABEC PO SCH (07:30)
[2021-11-07] MEDS: INSULIN REGULAR, HUMAN 100 UNIT/1 ML SQ SCH ×4 (07:30→21:12)
[2021-11-07] MEDS: MULTIVITAMINS/MINERALS TAB PO SCH (09:00)
[2021-11-07] MEDS: ASPIRIN 81 MG CHEW TAB PO SCH (09:00)
[2021-11-07] MEDS: DOXYCYCLINE HYCLATE 100 MG in SODIUM CHLORIDE 0.9% 100 ML IV SCH ×2 (09:00→15:30)
[2021-11-07] MEDS: CEFTRIAXONE 1 GM in SODIUM CHLORIDE 0.9% 50ML 50 ML IV SCH (11:21)
[2021-11-07] MEDS: ENOXAPARIN SODIUM INJ 100 MG/ML SYR SC SCH (11:43)
[2021-11-07] MEDS ORDERED: ENOXAPARIN SOD INJ 120 MG/0.8 ML SYR SC SCH (12:00)
[2021-11-07] MEDS ORDERED: BENZOCAINE 20% SPR 60 ML CAN ONE (12:03)
[2021-11-07] MEDS ORDERED: SODIUM CHLORIDE 0.9% 1000ML 1,000 ML ONE (12:03)
[2021-11-07] MEDS ORDERED: POVIDONE IODINE 0.05% 0.05 % ML PO ONE (12:34)
[2021-11-07] MEDS ORDERED: PROPOFOL IV EMULSION 10 MG/ML 20 ML VIAL ONE (12:34)
[2021-11-07] MEDS ORDERED: MIDAZOLAM HCL 2 MG/2 ML VIAL ONE (13:08)
[2021-11-07] MEDS ORDERED: FENTANYL CITRATE/PF 100MCG/2 ML INJ ONE (13:08)
[2021-11-07] MEDS: ATORVASTATIN 20 MG TAB PO SCH ×2 (15:30→16:43)
[2021-11-07] MEDS: AMIODARONE HCL 200 MG TAB PO SCH (16:43)
[2021-11-07] MEDS: FENOFIBRATE 145 MG TAB PO SCH (16:43)
[2021-11-07] MEDS: RIVAROXABAN 20 MG TABLET PO SCH (21:08)
[2021-11-08] VITALS (17 sets, daily range): BP systolic 82–153; BP diastolic 52–94
[2021-11-08] MEDS: METOPROLOL TARTRATE 25 MG TAB PO SCH ×2 (01:28→07:19)
[2021-11-08] MEDS: DOXYCYCLINE HYCLATE 100 MG in SODIUM CHLORIDE 0.9% 100 ML IV SCH ×2 (03:32→16:31)
[2021-11-08] MEDS: CEFTRIAXONE 1 GM in SODIUM CHLORIDE 0.9% 50ML 50 ML IV SCH (08:00)
[2021-11-08] MEDS: ATORVASTATIN 20 MG TAB PO SCH (08:00)
[2021-11-08] MEDS: AMIODARONE HCL 200 MG TAB PO SCH ×2 (08:00→16:31)
[2021-11-08] MEDS: PANTOPRAZOLE SOD 40 MG TABEC PO SCH (08:00)
[2021-11-08] MEDS: FENOFIBRATE 145 MG TAB PO SCH (08:00)
[2021-11-08] MEDS: MULTIVITAMINS/MINERALS TAB PO SCH (08:00)
[2021-11-08] MEDS: ASPIRIN 81 MG CHEW TAB PO SCH (08:00)
[2021-11-08] MEDS: INSULIN REGULAR, HUMAN 100 UNIT/1 ML SQ SCH ×3 (08:01→16:40)
[2021-11-08] MEDS: RIVAROXABAN 20 MG TABLET PO SCH (16:31)
[2021-11-08] MEDS ORDERED: METOPROLOL SUCCINATE 50 MG TAB XL PO SCH (17:00)
[2021-11-08] MEDS ORDERED: METOPROLOL SUCC50 MG PO (17:24)
[2021-11-08] MEDS ORDERED: METOPROLOL TART50 MG PO (17:24)
[2021-11-08] MEDS ORDERED: XARELTO20 MG PO (17:25)
[2021-11-08] MEDS ORDERED: ONDANSETRON HCL 4 MG ORAL DISINTEGRATING TAB PO PRN (18:00)
[2021-11-08] MEDS ORDERED: METOPROLOL TARTRATE 50 MG TAB PO SCH (21:00)
== END 2021-11-08 18:36 | disposition home or self-care (01) | DRG 309 ==
LOC: ER 23:11 → ERHOLD 11-06 02:13 → ICU 11-06 07:58
PROVIDERS: ADMIT Internal Medicine; ATTEND Internal Medicine
PROC: 5A2204Z Restoration of Cardiac Rhythm, Single (ICD-10-PCS; principal; 2021-11-07)
DX: I48.92 Unspecified atrial flutter (principal); N17.9 Acute kidney failure, unspecified; Z68.42 Body mass index [BMI] 45.0-49.9, adult; I13.0 Hypertensive heart and chronic kidney disease with heart failure and stage 1 through stage 4 chronic kidney disease, or unspecified chronic kidney disease; I50.22 Chronic systolic (congestive) heart failure; J44.9 Chronic obstructive pulmonary disease, unspecified; K21.9 Gastro-esophageal reflux disease without esophagitis; Z87.891 Personal history of nicotine dependence; Z91.048 Other nonmedicinal substance allergy status; Z95.0 Presence of cardiac pacemaker; E66.01 Morbid (severe) obesity due to excess calories; G47.33 Obstructive sleep apnea (adult) (pediatric); Z86.73 Personal history of transient ischemic attack (TIA), and cerebral infarction without residual deficits; E78.5 Hyperlipidemia, unspecified; I48.91 Unspecified atrial fibrillation; I49.5 Sick sinus syndrome; R53.81 Other malaise; E88.09 Other disorders of plasma-protein metabolism, not elsewhere classified; N18.9 Chronic kidney disease, unspecified; R55 Syncope and collapse; E11.22 Type 2 diabetes mellitus with diabetic chronic kidney disease; Z79.82 Long term (current) use of aspirin; Z79.4 Long term (current) use of insulin; Z20.822 Contact with and (suspected) exposure to COVID-19
CPT/HCPCS: 36415; 71045; 80053; 80061; 81001; 82550; 82553; 82948; 83036; 83735; 83880; 84436; 84443; 84479; 84484; 85025; 87040; 87086; 87186; 93005; 93306; 93312; 93320; 93325; 94799; 96372; 99285; J0696; J1160; J1650; J1817; J2250; J3010; J3370; J7030; J7050; U0002

== ENCOUNTER → 2022-07-01 | Day surgery (SDC) | payer MEDICARE ==
[~2022-07-01] MED LIST changes: +LEVOTHYROXINE25 MC1 PO; +MAGNESIUM OXID400 MG PO; +METOPROLOL TART50 MG PO; +OMEGA 3 1,0001 EACH PO; +SPIRIVA RESPIMAT4 GM INH; -STOOL SOFTENER1 EAC2 PEG; +STOOL SOFTENER1 EAC2 PO; +VITAMIN B-121000 MCG PO; +VITAMIN C1000 MG PO; +VITAMIN D250 MCG PO; +XARELTO20 MG PO
[2022-07-01 08:45] VITALS: BP 119/54
== END | disposition home or self-care (01) ==
LOC: OR 05:33
PROVIDERS: ATTEND Internal Medicine Gastroenterology
DX: K31.7 Polyp of stomach and duodenum (principal); E66.01 Morbid (severe) obesity due to excess calories; K44.9 Diaphragmatic hernia without obstruction or gangrene; Z71.3 Dietary counseling and surveillance; E11.9 Type 2 diabetes mellitus without complications; I10 Essential (primary) hypertension; J44.9 Chronic obstructive pulmonary disease, unspecified; I48.91 Unspecified atrial fibrillation; I49.3 Ventricular premature depolarization; I13.0 Hypertensive heart and chronic kidney disease with heart failure and stage 1 through stage 4 chronic kidney disease, or unspecified chronic kidney disease; N18.30 Chronic kidney disease, stage 3 unspecified; I50.9 Heart failure, unspecified; Z91.041 Radiographic dye allergy status; Z01.812 Encounter for preprocedural laboratory examination; Z20.822 Contact with and (suspected) exposure to COVID-19; Z79.4 Long term (current) use of insulin; Z79.899 Other long term (current) drug therapy; Z68.42 Body mass index [BMI] 45.0-49.9, adult; Z87.891 Personal history of nicotine dependence
CPT/HCPCS: 0223U; 36415 ×2; 43239; 82948; 88305; 88342; 88312

== ENCOUNTER 2022-11-12 07:26 | Inpatient (IN) | payer MEDICARE ==
[2022-11-10 14:41] LABS: BASOPHILS # (AUTO) 0.1 (0.0-0.1); BASOPHILS % 1.6 % (0.0-1.0); EOSINOPHILS % 10.9 % (0.0-6.0); HEMATOCRIT 41.4 % (38.2-49.6); LYMPHOCYTES # (AUTO) 1.6 (1.0-3.2); LYMPHOCYTES % 18.1 % (18.0-39.1); MEAN CORPUSCULAR HEMOGLOBIN 25.9 pg (28-32); MEAN CORPUSCULAR VOLUME 89.4 fL (81-99); MONOCYTES # (AUTO) 0.8 (0.2-0.8); MONOCYTES % 8.5 % (4.4-11.3); NEUTROPHILS # (AUTO) 5.4 (2.1-6.9); NEUTROPHILS % 60.6 % (38.7-80.0); PLATELET COUNT 259 x10e3/uL (140-360); RED BLOOD COUNT 4.63 x10e6/uL (4.3-5.7); RED CELL DISTRIBUTION WIDTH 17.6 % (11.7-14.4)
[2022-11-10 14:56] LABS: ANION GAP 16.1 mmol/L (8-16); CREATININE, SERUM 2.24 mg/dL (0.72-1.25); POTASSIUM 5.1 mmol/L (3.5-5.1)
[2022-11-10 14:59] LABS: INR 1.08; PROTHROMBIN TIME 14.2 seconds (11.9-14.5)
[~2022-11-12] VITALS: Ht 165.1 cm; Wt 134.7 kg
[2022-11-12] VITALS (9 sets, daily range): BP systolic 127–149; BP diastolic 52–79
[~2022-11-12 07:26] MED LIST changes: +ACCRUFER30 MG PO; +MONTELUKAST SOD10 MG PO; +OMEPRAZOLE40 MG PO
[2022-11-12] MEDS ORDERED: GENTAMICIN 80MG/NS 100 ML 200 ML IV ONE (07:52)
[2022-11-12] MEDS ORDERED: PIPERACILLIN/TAZOBACTAM 3.375 GM VIAL ONE (07:53)
[2022-11-12] MEDS ORDERED: SODIUM CHLORIDE 0.9% 1000ML 1,000 ML ONE (07:53)
[2022-11-12] MEDS ORDERED: BUPIVACAINE 0.25% 30ML SDV ONE (09:38)
[2022-11-12] MEDS ORDERED: IOPAMIDOL 300MG/ML 50ML INFUS..BTL IV ONE (09:38)
[2022-11-12] MEDS ORDERED: NEOSTIGMINE 1 MG/ML 10ML VIAL ONE (09:38)
[2022-11-12] MEDS ORDERED: ALBUTEROL SULFATE HFA 8GM INHALATION AEROSOL INH ONE (10:30)
[2022-11-12] MEDS ORDERED: SUGAMMADEX SODIUM 200 MG/2 ML VIAL IV ONE (11:13)
[2022-11-12] MEDS ORDERED: PHENAZOPYRIDINE HCL 100 MG TAB PO PRN (11:30)
[2022-11-12] MEDS ORDERED: DIPHENHYDRAMINE HCL INJ 50 MG/ML VIAL IM PRN (11:30)
[2022-11-12] MEDS ORDERED: ONDANSETRON HCL INJ 2MG/ML 2ML 2 MG/ML VIAL IV PRN (11:30)
[2022-11-12] MEDS ORDERED: ACETAMINOPHEN/CODEINE 300MG - 30MG TAB PO PRN (11:30)
[2022-11-12] MEDS ORDERED: FENTANYL CITRATE/PF 100MCG/2 ML INJ ONE ×2 (12:49→13:05)
[2022-11-12 13:29] LABS: BASOPHILS # (AUTO) 0.1 (0.0-0.1); EOSINOPHILS # (AUTO) 0.6 (0.0-0.4); EOSINOPHILS % 5.9 % (0.0-6.0); HEMATOCRIT 38.8 % (38.2-49.6); HEMOGLOBIN 11.2 g/dL (14.0-18.0); LYMPHOCYTES # (AUTO) 1.5 (1.0-3.2); LYMPHOCYTES % 15.7 % (18.0-39.1); MEAN CORPUSCULAR HEMOGLOBIN 25.9 pg (28-32); MEAN CORPUSCULAR HGB CONC 28.9 g/dL (31-35); MEAN CORPUSCULAR VOLUME 89.8 fL (81-99); MONOCYTES # (AUTO) 0.4 (0.2-0.8); MONOCYTES % 4.6 % (4.4-11.3); NEUTROPHILS # (AUTO) 6.7 (2.1-6.9); NEUTROPHILS % 72.2 % (38.7-80.0); PLATELET COUNT 250 x10e3/uL (140-360); RED BLOOD COUNT 4.32 x10e6/uL (4.3-5.7); RED CELL DISTRIBUTION WIDTH 17.1 % (11.7-14.4)
[2022-11-12 13:47] LABS: ANION GAP 10.3 mmol/L (8-16); CALCIUM 8.4 mg/dL (8.4-10.2); CREATININE, SERUM 1.73 mg/dL (0.72-1.25); POTASSIUM 4.3 mmol/L (3.5-5.1)
[2022-11-12] MEDS: SODIUM CHLORIDE 0.9% 1000ML 1,000 ML IV SCH (14:36)
[2022-11-12] MEDS: DOCUSATE SODIUM 100 MG CAP PO SCH (17:27)
[2022-11-12] MEDS ORDERED: ACETAMINOPHEN 1000 MG/100 ML IV PRN (18:00)
[2022-11-12] MEDS ORDERED: INSULIN LISPRO 100 UNIT/1 ML 3ML VIAL SQ SCH (21:00)
[2022-11-13] VITALS (7 sets, daily range): BP systolic 107–177; BP diastolic 50–64
[2022-11-13] MEDS: SODIUM CHLORIDE 0.9% 1000ML 1,000 ML IV SCH (01:58)
[2022-11-13 07:03] LABS: BASOPHILS # (AUTO) 0.1 (0.0-0.1); BASOPHILS % 0.7 % (0.0-1.0); EOSINOPHILS # (AUTO) 0.4 (0.0-0.4); EOSINOPHILS % 4.4 % (0.0-6.0); HEMATOCRIT 33.7 % (38.2-49.6); HEMOGLOBIN 10.5 g/dL (14.0-18.0); LYMPHOCYTES # (AUTO) 0.8 (1.0-3.2); LYMPHOCYTES % 8.2 % (18.0-39.1); MEAN CORPUSCULAR HEMOGLOBIN 26.2 pg (28-32); MEAN CORPUSCULAR HGB CONC 31.2 g/dL (31-35); MONOCYTES # (AUTO) 0.8 (0.2-0.8); MONOCYTES % 8.7 % (4.4-11.3); NEUTROPHILS # (AUTO) 7.4 (2.1-6.9); NEUTROPHILS % 77.6 % (38.7-80.0); PLATELET COUNT 213 x10e3/uL (140-360); RED BLOOD COUNT 4.01 x10e6/uL (4.3-5.7); RED CELL DISTRIBUTION WIDTH 17.3 % (11.7-14.4)
[2022-11-13 07:28] LABS: ANION GAP 13.8 mmol/L (8-16); CALCIUM 8.2 mg/dL (8.4-10.2); CREATININE, SERUM 1.83 mg/dL (0.72-1.25); POTASSIUM 4.8 mmol/L (3.5-5.1)
[2022-11-13] MEDS ORDERED: ALBUTEROL/IPRATROPIUM 3 ML NEB NEB PRN (08:30)
[2022-11-13] MEDS ORDERED: TRAMADOL HCL 50 MG TAB PO PRN (08:30)
[2022-11-13] MEDS: LEVOTHYROXINE SODIUM 25 MCG TABLET PO SCH (09:00)
[2022-11-13] MEDS ORDERED: INSULIN GLARGINE 100 UNITS/ML VIAL SQ SCH (09:00)
[2022-11-13] MEDS: IRBESARTAN 150 MG TAB PO SCH (09:02)
[2022-11-13] MEDS: SENNA-S TABLET PO SCH ×2 (09:03→17:30)
[2022-11-13] MEDS: DOCUSATE SODIUM 100 MG CAP PO SCH ×2 (09:03→17:30)
[2022-11-13] MEDS: PANTOPRAZOLE SOD 40 MG TABEC PO SCH (09:03)
[2022-11-13] MEDS: MAGNESIUM OXIDE 400 MG TAB PO SCH (09:04)
[2022-11-13] MEDS: CYANOCOBALAMIN 1,000 MCG TAB PO SCH (09:04)
[2022-11-13] MEDS: METOPROLOL TARTRATE 50 MG TAB PO SCH ×2 (09:05→17:30)
[2022-11-13] MEDS: ASCORBIC ACID 500 MG TAB PO SCH (09:05)
[2022-11-13] MEDS: FENOFIBRATE 145 MG TAB PO SCH (09:05)
[2022-11-13] MEDS ORDERED: HYDROXYZINE HCL 25 MG TAB PO PRN (09:15)
[2022-11-13] MEDS ORDERED: HYDROXYZINE HCL 25 MG TAB PO ONE (10:00)
[2022-11-13] MEDS: INSULIN LISPRO 100 UNIT/1 ML 3ML VIAL SQ SCH ×2 (11:41→16:30)
[2022-11-13] MEDS ORDERED: PHENYLEPHRINE HCL 1% 10 MG/ML VIAL ONE (11:59)
[2022-11-13] MEDS ORDERED: GLYCOPYRROLATE INJ 0.2 MG/ML VIAL ONE (11:59)
[2022-11-13] MEDS ORDERED: ROCURONIUM BROMIDE 10 MG/ML 5ML VIAL IV ONE (11:59)
[2022-11-13] MEDS ORDERED: LIDOCAINE HCL 2% LOCAL INJ 5 ML SDV VIAL INJ ONE (11:59)
[2022-11-13] MEDS ORDERED: POVIDONE IODINE 0.05% 0.05 % ML PO ONE (11:59)
[2022-11-13] MEDS ORDERED: SUCCINYLCHOLINE CHLORIDE 20 MG/ML 10ML VIAL ONE (11:59)
[2022-11-13] MEDS ORDERED: ETOMIDATE 2 MG/ML 10 ML INJ IV ONE (11:59)
[2022-11-13] MEDS ORDERED: SEVOFLURANE INHAL SOLN 250 ML PEN BTL ONE (11:59)
[2022-11-13] MEDS ORDERED: PROPOFOL IV EMULSION 10 MG/ML 20 ML VIAL ONE (11:59)
[2022-11-13] MEDS ORDERED: ONDANSETRON HCL INJ 2MG/ML 2ML 2 MG/ML VIAL ONE (11:59)
[2022-11-13] MEDS ORDERED: DEXAMETHASONE SOD PHOS INJ 4 MG/ML SDV ONE (11:59)
[2022-11-13] MEDS ORDERED: EPHEDRINE SULFATE INJ 50 MG/ML VIAL ONE (11:59)
[2022-11-13] MEDS ORDERED: ONDANSETRON HCL 4 MG ORAL DISINTEGRATING TAB PO PRN ×2 (12:45)
[2022-11-13] MEDS: INSULIN GLARGINE 100 UNITS/ML VIAL SQ SCH (21:00)
[2022-11-13] MEDS ORDERED: TERAZOSIN HCL 5 MG CAP PO SCH (21:00)
[2022-11-14] VITALS: BP 111/55
[2022-11-14 04:00] VITALS: BP 130/61
[2022-11-14 05:44] LABS: BASOPHILS # (AUTO) 0.1 (0.0-0.1); BASOPHILS % 0.9 % (0.0-1.0); EOSINOPHILS # (AUTO) 1.6 (0.0-0.4); EOSINOPHILS % 16.9 % (0.0-6.0); HEMATOCRIT 31.8 % (38.2-49.6); HEMOGLOBIN 10.1 g/dL (14.0-18.0); LYMPHOCYTES # (AUTO) 1.7 (1.0-3.2); LYMPHOCYTES % 18.2 % (18.0-39.1); MEAN CORPUSCULAR HEMOGLOBIN 26.2 pg (28-32); MEAN CORPUSCULAR HGB CONC 31.8 g/dL (31-35); MEAN CORPUSCULAR VOLUME 82.6 fL (81-99); MONOCYTES # (AUTO) 1.2 (0.2-0.8); MONOCYTES % 12.5 % (4.4-11.3); NEUTROPHILS # (AUTO) 4.7 (2.1-6.9); NEUTROPHILS % 51.1 % (38.7-80.0); PLATELET COUNT 238 x10e3/uL (140-360); RED BLOOD COUNT 3.85 x10e6/uL (4.3-5.7); RED CELL DISTRIBUTION WIDTH 17.4 % (11.7-14.4)
[2022-11-14 06:06] LABS: ANION GAP 12.8 mmol/L (8-16); CALCIUM 8.3 mg/dL (8.4-10.2); CREATININE, SERUM 1.84 mg/dL (0.72-1.25); POTASSIUM 3.8 mmol/L (3.5-5.1)
[2022-11-14] MEDS: LEVOTHYROXINE SODIUM 25 MCG TABLET PO SCH (06:33)
[2022-11-14] MEDS: INSULIN LISPRO 100 UNIT/1 ML 3ML VIAL SQ SCH (07:30)
[2022-11-14] MEDS ORDERED: CEFTIN PO (09:01)
[2022-11-14] MEDS ORDERED: TYLENOL 3 PO (09:02)
[2022-11-14] MEDS: PANTOPRAZOLE SOD 40 MG TABEC PO SCH (09:30)
[2022-11-14] MEDS: IRBESARTAN 150 MG TAB PO SCH (09:31)
[2022-11-14] MEDS: DOCUSATE SODIUM 100 MG CAP PO SCH (09:31)
[2022-11-14] MEDS: SENNA-S TABLET PO SCH (09:32)
[2022-11-14] MEDS: CYANOCOBALAMIN 1,000 MCG TAB PO SCH (09:32)
[2022-11-14] MEDS: FENOFIBRATE 145 MG TAB PO SCH (09:32)
[2022-11-14] MEDS: ASCORBIC ACID 500 MG TAB PO SCH (09:32)
[2022-11-14] MEDS: MAGNESIUM OXIDE 400 MG TAB PO SCH (09:32)
[2022-11-14] MEDS: METOPROLOL TARTRATE 50 MG TAB PO SCH (09:32)
[2022-11-14] MEDS: INSULIN GLARGINE 100 UNITS/ML VIAL SQ SCH (09:36)
[2022-11-14 09:44] VITALS: BP 145/63
[2022-11-14] MEDS ORDERED: NEOMYCIN/POLYMYX/BACITR OINT 0.9 GM PKT ONE (10:36)
[2022-11-14 10:44] VITALS: BP 145/63
== END 2022-11-14 10:50 | disposition home or self-care (01) | DRG 713 ==
LOC: OR 07:26 → PACU V 13:19 → MED/SURG 14:03
PROVIDERS: ADMIT Internal Medicine; ATTEND Internal Medicine
PROC: BT141ZZ Fluoroscopy of Kidneys, Ureters and Bladder using Low Osmolar Contrast (ICD-10-PCS; 2022-11-12)
PROC: 0VTTXZZ Resection of Prepuce, External Approach (ICD-10-PCS; 2022-11-12)
PROC: 0T788ZZ Dilation of Bilateral Ureters, Via Natural or Artificial Opening Endoscopic (ICD-10-PCS; principal; 2022-11-12 10:11)
PROC: 0V508ZZ Destruction of Prostate, Via Natural or Artificial Opening Endoscopic (ICD-10-PCS; 2022-11-12 10:11)
DX: N40.1 Benign prostatic hyperplasia with lower urinary tract symptoms (principal); I13.0 Hypertensive heart and chronic kidney disease with heart failure and stage 1 through stage 4 chronic kidney disease, or unspecified chronic kidney disease; N13.8 Other obstructive and reflux uropathy; N39.0 Urinary tract infection, site not specified; N99.820 Postprocedural hemorrhage of a genitourinary system organ or structure following a genitourinary system procedure; Z68.42 Body mass index [BMI] 45.0-49.9, adult; R33.8 Other retention of urine; N47.1 Phimosis; R31.0 Gross hematuria; N18.9 Chronic kidney disease, unspecified; E66.09 Other obesity due to excess calories; Q54.1 Hypospadias, penile; J44.9 Chronic obstructive pulmonary disease, unspecified; I50.9 Heart failure, unspecified; I25.10 Atherosclerotic heart disease of native coronary artery without angina pectoris; G47.33 Obstructive sleep apnea (adult) (pediatric); J45.909 Unspecified asthma, uncomplicated; Z86.73 Personal history of transient ischemic attack (TIA), and cerebral infarction without residual deficits; Z88.1 Allergy status to other antibiotic agents; Z88.5 Allergy status to narcotic agent
CPT/HCPCS: 36415; 71046; 74420; 80048; 82948; 83735; 85025; 85610; 85730; 88304; 88305; 88342; 93005; 94799; 96360; C1758; J0330; J1100; J1580; J1815; J2001; J2370; J2405; J2543; J2710; J3010; J3410; J7030

== ENCOUNTER → 2023-02-24 | Day surgery (SDC) | payer MEDICARE ==
[2023-02-20 10:56] LABS: BASOPHILS # (AUTO) 0.2 (0.0-0.1); BASOPHILS % 1.5 % (0.0-1.0); EOSINOPHILS # (AUTO) 1.3 (0.0-0.4); EOSINOPHILS % 12.7 % (0.0-6.0); HEMATOCRIT 41.2 % (38.2-49.6); LYMPHOCYTES # (AUTO) 2.9 (1.0-3.2); LYMPHOCYTES % 27.8 % (18.0-39.1); MEAN CORPUSCULAR HEMOGLOBIN 27.5 pg (28-32); MEAN CORPUSCULAR HGB CONC 31.6 g/dL (31-35); MEAN CORPUSCULAR VOLUME 87.3 fL (81-99); MONOCYTES # (AUTO) 0.8 (0.2-0.8); MONOCYTES % 7.9 % (4.4-11.3); NEUTROPHILS # (AUTO) 5.1 (2.1-6.9); NEUTROPHILS % 49.5 % (38.7-80.0); PLATELET COUNT 287 x10e3/uL (140-360); RED BLOOD COUNT 4.72 x10e6/uL (4.3-5.7); RED CELL DISTRIBUTION WIDTH 15.1 % (11.7-14.4)
[2023-02-20 11:08] LABS: ALBUMIN 3.3 g/dL (3.5-5.0); ALBUMIN/GLOBULIN RATIO 0.9 (0.8-2.0); ANION GAP 16.1 mmol/L (8-16); CHOL/HDL RATIO 3.5 (3.9-4.7); CREATININE, SERUM 2.1 mg/dL (0.72-1.25); POTASSIUM 5.1 mmol/L (3.5-5.1)
[2023-02-24] VITALS (9 sets, daily range): BP systolic 126–158; BP diastolic 59–96
[~2023-02-24] VITALS: Ht 165.1 cm; Wt 133.8 kg
[~2023-02-24] MED LIST changes: +ALPRAZOLAM 0.5 MG TAB ONE; +ALTOPREV40 MG PO; +AMIODARONE HCL200 MG PO; +CEFTIN PO; +DIPHENHYDRAMINE HCL 25 MG CAP ONE; +DOXYCYCLINE HY100 MG PO; +FENTANYL CITRATE/PF 100MCG/2 ML INJ ONE; +HEPARIN SOD (PORCINE) 1000 UNIT/ML 30ML ONE; +HEPARIN SOD/SOD CHLORIDE 1,000 ML ONE; +HEPARIN SOD/SOD CHLORIDE 2,000 ML ONE; +HYDRALAZINE HC100 MG PO; +IOPAMIDOL 370 MG/ML 100 ML INFUS..BTL INJ ONE; +LIDOCAINE HCL 2% LOCAL 20 ML VIAL ONE; +MIDAZOLAM HCL 2 MG/2 ML VIAL ONE; +NITROGLYCERIN/D5W 200 MCG/ML 250 ML ONE; +POTASSIUM CHLO20 ME1 PO; +SODIUM CHLORIDE 0.9% 1000ML 1,000 ML ONE; +TYLENOL 3 PO; +VERAPAMIL HCL 2.5 MG/ML 2 ML VIAL ONE
== END | disposition home or self-care (01) ==
LOC: CATH LAB 12:03
PROVIDERS: ATTEND Internal Medicine Interventional Cardiology
DX: I25.118 Atherosclerotic heart disease of native coronary artery with other forms of angina pectoris (principal); J44.9 Chronic obstructive pulmonary disease, unspecified; E11.9 Type 2 diabetes mellitus without complications; E78.00 Pure hypercholesterolemia, unspecified; I10 Essential (primary) hypertension; Z71.89 Other specified counseling; Z71.82 Exercise counseling; Z71.3 Dietary counseling and surveillance; Z91.041 Radiographic dye allergy status; Z01.812 Encounter for preprocedural laboratory examination; Z79.4 Long term (current) use of insulin; Z79.84 Long term (current) use of oral hypoglycemic drugs; Z79.02 Long term (current) use of antithrombotics/antiplatelets; Z79.82 Long term (current) use of aspirin; Z79.899 Other long term (current) drug therapy; Z68.45 Body mass index [BMI] 70 or greater, adult; Z95.0 Presence of cardiac pacemaker
CPT/HCPCS: 36415 ×2; 80053; 80061; 82948; 83880; 85025; 93454; C1887; C1894; J1644; J2001; J2250; J3010; J7030; Q9967; 99152; 99153

== ENCOUNTER → 2024-08-18 | Outpatient (REF) | payer MEDICARE ==
[~2024-08-18] MED LIST changes: -ALPRAZOLAM 0.5 MG TAB ONE; +B COMPLEX1 EACH; +CIPRO500 MG PO; -DIPHENHYDRAMINE HCL 25 MG CAP ONE; -FENTANYL CITRATE/PF 100MCG/2 ML INJ ONE; +FLOMAX0.4 MG PO; -HEPARIN SOD (PORCINE) 1000 UNIT/ML 30ML ONE; -HEPARIN SOD/SOD CHLORIDE 1,000 ML ONE; -HEPARIN SOD/SOD CHLORIDE 2,000 ML ONE; +HYDROXYZIN10 MG/5 ML PO; +HYDROXYZINE HCL50 MG PO; -IOPAMIDOL 370 MG/ML 100 ML INFUS..BTL INJ ONE; -LIDOCAINE HCL 2% LOCAL 20 ML VIAL ONE; +MAGOX 400400 MG PO; -MIDAZOLAM HCL 2 MG/2 ML VIAL ONE; -NITROGLYCERIN/D5W 200 MCG/ML 250 ML ONE; +PROTONIX20 MG PO; +PROVENTIL HFA6.7 GM INH; +RENA-VITE TABL0.8 MG; -SODIUM CHLORIDE 0.9% 1000ML 1,000 ML ONE; -VERAPAMIL HCL 2.5 MG/ML 2 ML VIAL ONE; +ZINC
== END ==
LOC: US 14:18
PROVIDERS: ATTEND Urology
DX: N43.3 Hydrocele, unspecified (principal); N45.3 Epididymo-orchitis; Q54.9 Hypospadias, unspecified
CPT/HCPCS: 76870; 93976